=== PATIENT | female | born 1945 | race Caucasian/White ===

== ENCOUNTER → 2016-11-16 | Outpatient (CLI) | payer OTHER, MEDICARE ==
[~2016-11-16] MED LIST: ADVAIR 100-501 EACH INH; CALTRATE 600 +1 EAC1 PO; CO Q-10200 MG PO; COZAAR100 MG PO; FOSAMAX70 MG PO; HYGROTON25 MG PO; K-TAB 10MEQ10 MEQ PO; KRILL OIL 3001 EACH PO; LIPITOR10 MG PO; LUTEIN20 MG PO; MAGNESIUM400 M1 PO; MIRALAX17 GM PO; MOBIC15 MG PO; MURO 128 5% OP3.5 GM OPHTH; NEURONTIN300 MG PO; OXYCONTIN EXTEN10 MG PO; PROAIR HFA8.5 GM INH; RESTASIS1 EACH OPHTH; SENNA8.6 MG PO; SURFAK240 MG PO; THERA-VITE W/ B1 TAB PO; TOPROL XL25 MG PO; TYLENOL325 MG PO; VALIUM5 MG PO; VITAMIN D5000 UNI1 PO; ZINC50 MG PO
[2016-11-16 10:57] LABS: INR - (THERAPEUTIC) 0.96 (0.92-1.07); PROTIME 10.1 SECONDS (9.8-11.4)
== END ==
LOC: LGSMG 10:43
PROVIDERS: Internal Medicine
DX: Z01.818 Encounter for other preprocedural examination (principal)

== ENCOUNTER 2016-11-19 14:00 | Inpatient (IN) | payer OTHER, MEDICARE ==
[~2016-11-19] VITALS: Ht 168.9 cm; Wt 99.4 kg
--- NOTE | ~2016-11-19 | DS ---
PATIENT'S NAME: [facility] AGE: 71 Y [address] ROOM: [place] [address] LOCATION: [facility] ADMIT DATE: 11/24/2016 Discharge Summary DISCHARGE DATE: 11/30/2016 FAMILY PHYSICIAN: Tsering Marsh MD ATTENDING PHYSICIAN: Ross Blanc ADMIT DIAGNOSES: 1. Lumbar degenerative disk disease. 2. Lumbar spinal stenosis. 3. Lumbar radiculopathy. 4. Low back pain. 5. Status post lumbar fusion. 6. Sarcoidosis. DISCHARGE DIAGNOSES: 1. Lumbar degenerative disk disease. 2. Lumbar spinal stenosis. 3. Lumbar radiculopathy. 4. Low back pain. 5. Status post lumbar fusion. 6. Sarcoidosis. 7. Postoperative urinary tract infection. PROCEDURE PERFORMED: Lumbar decompression and fusion with removal of hardware and re-instrumentation with posterior pedicle screw instrumentation and interbody PEEK cage. HISTORY OF PRESENT ILLNESS: Lila is a 70-year-old female who has been followed in our clinic for conservative treatment of ongoing chronic low back pain with radiculopathy, secondary to adjacent level lumbar spinal stenosis. The patient has previous history of lumbar fusion. She failed all conservative treatment measures. At that point, lumbar fusion was discussed with the patient. She was informed of potential risks and side effects associated with this procedure. She voiced understanding and consented to proceed with surgery. HOSPITAL COURSE: The patient admitted through same-day surgery, underwent the above-stated procedure, was recovered in the PACU, and transferred to [address] [place] [address] in stable condition. The patient had significant difficulty with pain control. She did have intraoperative chronic dural leak that was repaired intraoperatively. She was placed supine for almost 2 days. This limited her mobility early on and again attributed to some of her initial pain control issues. Eventually, on postop day 2, she was sitting upright and mobilizing again with difficulty. She was eventually transitioned to oral pain medications and muscle relaxers. She was tolerating these. On postop day 3, PATIENT'S NAME: [facility] AGE: 71 Y [address] ROOM: [place] [address] LOCATION: [facility] ADMIT DATE: 11/24/2016 Discharge Summary DISCHARGE DATE: 11/30/2016 FAMILY PHYSICIAN: Tsering Marsh MD ATTENDING PHYSICIAN: Ross Blanc she started complaining of some bladder spasm and discomfort. Postop day 4, she was diagnosed with a urinary tract infection. She was treated with IV antibiotics. Vital signs are stable throughout. She is afebrile throughout her hospital course. Hemoglobin and hematocrit were stable. She did not require a blood transfusion. The patient eventually was mobilizing with use of a walker and minimal assistance upon discharge. Her incision was clean, dry, and intact with no signs of infection. DISCHARGE COURSE: The patient was discharged home on 11/30/2016. She was reminded of her postoperative restrictions, use of her brace, care for incision and dressing, and activity precautions. She was discharged home with oral pain medication and muscle relaxers. All of her questions were answered at this time. She is to follow up with Dr. Blanc in clinic in approximately 10 days. CARROLL HASTINGS FOR ROSS BLANC MD JTF/modl /[id number] d: 12/08/16516 t: 01/10/17 0802, DISCHARGE SUMMARY
--- NOTE | ~2016-11-19 | OR ---
PATIENT'S NAME: [facility] AGE: 70 Y [address] ROOM: [place] [address] LOCATION: [facility] ADMIT DATE: 11/24/2016 OR/Procedure Report DISCHARGE DATE: FAMILY PHYSICIAN: Tsering Marsh MD ATTENDING PHYSICIAN: Ross Blanc SURGEON: Ross Blanc MD AUTO DRIVER: DATE OF PROCEDURE: 11/24/2016 PREOPERATIVE DIAGNOSES: 1. Lumbar degenerative disk disease. 2. Lumbar spondylosis. 3. Lumbar spinal stenosis. 4. Lumbar radiculopathy. 5. Lumbar neurogenic claudication. 6. Status post lumbar fusion, L4-5. 7. Lumbar foraminal stenosis, right T12-L1, with radiculopathy. POSTOPERATIVE DIAGNOSES: 1. Lumbar degenerative disk disease. 2. Lumbar spondylosis. 3. Lumbar spinal stenosis. 4. Lumbar radiculopathy. 5. Lumbar neurogenic claudication. 6. Status post lumbar fusion, L4-5. 7. Lumbar foraminal stenosis, right T12-L1, with radiculopathy. 8. Large dural deficiency, left subarticular recess, L3-4. PROCEDURES PERFORMED: 1. Lumbar hardware removal, L4-5, screws and rods, nonsegmental. 2. Lumbar laminectomy of L3 with decompression of L3-4 interspace. 3. Lumbar fusion, combined technique, including transforaminal lumbar interbody fusion plus posterolateral fusion, L3-4. 4. Application of spinal prosthetic cage, L3-4 interspace. 5. Application of pedicle screw instrumentation, L3-4, nonsegmental, single edgardo, bilateral. 6. [place] of bone marrow aspirate, transpedicular technique, right L3 vertebral body. 7. Patch grafting repair of large dural deficiency measuring 2 x 1 cm, left L3-4. 8. Right T12-L1 transforaminal epidural steroid injection. FRUIT PEELER: CARROLL Warren ANESTHESIA: General. PATIENT'S NAME: [facility] AGE: 70 Y [address] ROOM: [place] [address] LOCATION: [facility] ADMIT DATE: 11/24/2016 OR/Procedure Report DISCHARGE DATE: FAMILY PHYSICIAN: Tsering Marsh MD ATTENDING PHYSICIAN: Ross Blanc ESTIMATED BLOOD LOSS: 600 mL. COMPLICATIONS: None. SPECIMENS: None. FINDINGS: Severe stenosis with a large dural deficiency, chronic, left subarticular recess, L3-4. Severe stenosis. Well-healed fusion, L4-5. INSTRUMENTATION USED: Globus Creo pedicle screw fixation and caliber cage. OPERATIVE INDICATIONS: The patient is a 70-year-old female with symptomatic spinal stenosis adjacent to a level where she had previous surgery. The patient failed conservative treatment and was offered surgery in the form of a lumbar decompression and fusion. After details, risks, benefits, and options were explained, she freely consented to surgery. She was offered surgery in the form of lumbar decompression and fusion with removal of the hardware from L4-5 where she had previously healed. After details, risks, benefits, and options were explained, she freely consented to surgery. DESCRIPTION OF PROCEDURE: After the patient was correctly identified and operative site initialed, she was taken back to the operating room and placed in the supine position. After general anesthesia was induced, she was placed in the prone position with all bony prominences well-padded and protected. The back was prepped and draped in the usual sterile fashion. A time-out was taken to verify the patient and the procedure. 10 mL of 0.25% Marcaine with epinephrine was injected in line with the incision. A 10-blade was used to make a midline incision over the operative levels through the previous scar. Dissection was taken down through subcutaneous tissue with electrocautery. The fascia was opened in the midline, and a subperiosteal dissection was performed to expose the posterior elements. The previously placed screws at L4-5 were encountered and then removed without difficulty. The screws still had very good fixation in the bone graft lateral gutter and healed well. After the hardware was removed, the transverse processes of L3 were exposed bilaterally. Next, the spinous process of L3 was resected, and the lamina was thinned with a Leksell rongeur. A high-speed bur was used to thin the lamina, and fine-tipped Kerrison were used to resect the remaining lamina. The lateral recesses were decompressed directly. On the left side, after resection of the markedly hypertrophied facet which was causing severe stenosis, there was a large area of chronic dural deficiency. Spinal fluid flowed freely from the large ulcerative-type lesion. The area was protected. The decompression was completed. Next, Durepair xenograft was shaped and then PATIENT'S NAME: [facility] AGE: 70 Y [address] ROOM: [id number] [place], [place] [address] LOCATION: [facility] ADMIT DATE: 11/24/2016 OR/Procedure Report DISCHARGE DATE: FAMILY PHYSICIAN: Tsering Marsh MD ATTENDING PHYSICIAN: Ross Blanc was sutured as a graft over the large dural deficiency using 5-0 interrupted silk suture. It occluded the area nicely, and there were no further areas of CSF loss or leakage. The decompression was completed, and right-sided facet at L3-4 was resected. The nerve root was decompressed through its course. Gentle medial retraction on the dura allowed identification of the disk space. It was incised and then debrided using pituitaries, curettes, and disk space kirk. After the disk space was prepared, it was packed with BMP and bone graft. A cage of the appropriate size was impacted in position and recessed below the posterior vertebral margin. It was expanded to its torque-limiting height. The reference ring clamp for the O-arm was attached to the L2 spinous process, and the arm was brought in for stealth navigation scan. Under stealth navigation, the pedicles were localized at L3 and verified at L4. Screws were placed at both levels and verified on confirmation scan. Prior to screw placement on the right at L3, a bone marrow aspirate needle was introduced into the vertebral body, and 5 mL of bone marrow aspirate was obtained and mixed with bone graft as well as bone graft senior engineering associate. Next, rods were reduced to the screws. Set caps placed and tightened to the appropriate torque. A high-speed bur was used to decorticate the left-sided transverse processes at L3 and the fusion mass at L4. The bone graft harvested locally from the spine along with bone graft senior engineering associate and bone marrow aspirate was packed into that left lateral gutter from the lateral fusion. The wound was irrigated and dried. There was no bleeding. A thin layer of DuraSeal was injected over the disk space isolated from the spinal canal as well as the dural patched area. 1 g of vancomycin powder was divided between the superficial and deep tissues. A #1 Vicryl suture was used to close the fascia, 0 Vicryl on the subcutaneous tissue, and then tre on the skin. A sterile dressing was applied. Under fluoroscopic control, the area for the right T12-L1 transforaminal epidural steroid injection was identified. It was marked on the skin, and the skin was prepped in sterile fashion with Betadine. It was draped sterilely, and under fluoroscopic control, a 5-inch, 22-gauge spinal needle was advanced through the skin to enter the right T12-L1 transforaminal region. This was verified on AP and lateral x-rays. There was no blood or CSF aspirated. 1 mL of 200 weight contrast was injected which showed good flow along the nerve root into the epidural space. Next, 10 mg of dexamethasone along with 1 mL of 1% plain lidocaine preservative-free was injected into the transforaminal region. The needle was withdrawn, and the skin was cleansed. The patient was awoken from anesthesia and taken to the recovery room in stable condition. ROSS BLANC MD PATIENT'S NAME: [facility] AGE: 70 Y [address] ROOM: [address] [address] LOCATION: [facility] ADMIT DATE: 11/24/2016 OR/Procedure Report DISCHARGE DATE: FAMILY PHYSICIAN: Tsering Marsh MD ATTENDING PHYSICIAN: Ross Blanc/mary /[id number] d: 11/24/16 1526 t: 11/28/16 1227, OPERATIVE SUMMARY
[2016-11-22] MEDS ORDERED: RESTASIS1 EACH OPHTH (14:00)
[2016-11-22] MEDS ORDERED: ADVAIR 100-501 EACH INH (14:00)
[2016-11-22] MEDS ORDERED: PROAIR HFA8.5 GM INH (14:01)
[2016-11-22] MEDS ORDERED: K-TAB 10MEQ10 MEQ PO (14:02)
[2016-11-22] MEDS ORDERED: TOPROL XL25 MG PO (14:03)
[2016-11-22] MEDS ORDERED: MOBIC15 MG PO (14:04)
[2016-11-22] MEDS ORDERED: COZAAR100 MG PO (14:05)
[2016-11-22] MEDS ORDERED: LIPITOR10 MG PO (14:06)
[2016-11-22] MEDS ORDERED: CO Q-10200 MG PO (14:07)
[2016-11-22] MEDS ORDERED: VITAMIN D5000 UNI1 PO (14:08)
[2016-11-22] MEDS ORDERED: CALTRATE 600 +1 EAC1 PO (14:08)
[2016-11-22] MEDS ORDERED: KRILL OIL 3001 EACH PO (14:08)
[2016-11-22] MEDS ORDERED: THERA-VITE W/ B1 TAB PO (14:09)
[2016-11-22] MEDS ORDERED: LUTEIN20 MG PO (14:09)
[2016-11-22] MEDS ORDERED: HYGROTON25 MG PO (14:09)
[2016-11-22] MEDS ORDERED: ZINC50 MG PO (14:11)
[2016-11-22] MEDS ORDERED: MAGNESIUM400 M1 PO (14:11)
[2016-11-22] MEDS ORDERED: MURO 128 5% OP3.5 GM OPHTH (14:13)
[2016-11-24] MEDS ORDERED: FOSAMAX70 MG PO (06:42)
[2016-11-24 07:22] LABS: INR - (THERAPEUTIC) 0.94 (0.92-1.07); PROTIME 9.9 SECONDS (9.8-11.4)
--- NOTE | 2016-11-24 14:55 | NUR ---
Introduced self/role to patient and her Didier, they live in [place]. She has had previous back surgeries. Listed off all the DME they already have and deny any need for additional DME. No barriers to discharge were mentioned. Added my name to her marker board, will continue to follow.
--- NOTE | 2016-11-24 17:50 | NUR ---
Significant Event: Patient came up from PACU at 1415. AOx3. VSS. CSM WNL. Nucynta and valium also given. Dilaudid VOLLEYBALL COACH. Dressing to back is C/D/I. On bedrest and to lay flat on back untill tomorrow. Hansen intact draining yellow urine. Follow up:
--- NOTE | 2016-11-25 04:25 | NUR ---
Significant Event: Alert and oriented X3. Drowsy at beginning of shift: fell asleep quickly, O2 need increased to 2L to keep sats >90% while drifting off to sleep. Pt was rating pain 8/10 though falling asleep. Neurochecks are WNL. Dressing to back is CDI. Pt is to lay flat in bed. Hansen, 550 ml out this shift. IV running to R) wrist. SL to L) FA. Dilaudid HAND POTTER for pain control. Pt has used 4.6 mg this shift. Pt continually rates pain 7-8/10. Nuycnta given X3 last at 0340 (orders to give orals with HAND POTTER). Toradol given X1 at 2215. Do acute distress noted with pain rating 8/10, pt able to rest. Dry eyes. Home restatis identified by pharmacy. Follow up: Dr. Blanc to address activity today. Pain management. Need order for systane eye drops, note placed on chart for MD.
[2016-11-25 05:48] LABS: BASOPHIL % 0.1 %; HEMATOCRIT 32.6 % (33.0-46.0); HEMOGLOBIN 10.6 g/dL (10.0-15.0); IMMATURE GRANULOCYTE # 0.1 K/uL (0.0-0.3); LYMPHOCYTE % 7.2 %; MCH 27.3 pg (27.0-34.0); MCHC 32.5 gm/dL (32.0-36.5); MONOCYTE % 6.7 %; MPV 11.7 fl (9.4-12.4); NEUTROPHIL # (ANC) 12.2 K/uL (1.8-7.8); NRBC % 0 /100WBC (0-0.00); PLATELET COUNT 150 K/uL (150-450); RBC 3.88 M/uL (3.50-5.50); RDW-CV 13.4 % (11.9-14.6); WBC 14.3 K/uL (4.0-11.0)
--- NOTE | 2016-11-25 13:51 | NUR ---
Significant Event: PT REMAINS RESTING IN BED WITH HEAD AT 10 DEGREES. IF THE HEADACHE RESOLVES SHE MUST LAY 1 HOUR AND THEN GRADUALLY INCREASE TO 30 DEGREES. MAGANA CATH REMAINS INTACT. LIP READING TEACHER DILAUDID FOR PAIN RATES AT A 5. BENEDRYLK GIUVEN AT 1315 FOR ITCHING. PT HAS VERY DRY EYES AND USES HER OWN EYE DROPS AT BED SIDE FOR THIS. IV FLUIDS CONT. DRESSING TO LOWER BACK CLEAN AND DRY. SOME NAUSEA THIS AM BUT HAS RESOLVED. 02 AT 2LPM/NC. TORODOL GIVEN THIS AFTERNOON. VALIUM ALSO GIVEN. CALL DR CACERES IF HEADACHE RETURNS WHEN EKLEVATED. Follow up:
--- NOTE | 2016-11-25 16:16 | NUR ---
Pt still on Bedrest orders with elevation of head if pt does not have headaches. PT will assess pt mobility once off bedrest. Kaitlyn Pappas, PT
--- NOTE | 2016-11-26 07:33 | NUR ---
Significant Event: On Dilaudid WEIGHT REDUCING TECHNICIAN. CSM WNL. Bedrest with HOB no higher than 30 degrees. 1 L of oxygen nasal cannula. Hansen catheter. Dressing has moderate sanginous drainage from the previous shift. Percocet last at 0512. Valium at 0343. Toradol at 0022. Benadryl at 0257 for itching. Zofran at 0257 for heartburn. Follow up:
--- NOTE | 2016-11-26 17:16 | NUR ---
Pt alert and oriented. VA have been stable. She remains on O2 at 1 liter. SEWER BUILDER dilaudid stopped this afternoon. had 1.8 mg in with 18 injections. She remains on ETCO2 and sat monitor. Pt has rated pain in low back and pelvis/hips from 9 down to 2. Also some pain and stiffness in neck. Pt back dressing changed today by Dr Cheng. Pt has echeverria that can be removed anytime tonight. She has felt urge to void at times but 850 ml out. Pt has been turned q 2 hr when in bed and position of head, legs, etc changed numerous times to get comfortable. She stood at 1415, took a few steps and up in recliner. Legs and body weak. Returned to bed at 1615. She had ofirmev, refused oxycodone. Had vistaril for itching and it also helped the pain. Pt has had heartburn and reflux. zofran this morning, mylanta and pepcid given. Says it is better. She had projectile emesis this am after some pills. Takes water only. States no appetite and doesn't want food at this time. Pt has had dry eyes and meds used. She is high risk TOAN. Pt hasn't had headache this shift until she transferred into bed and then it was mild. Pt also refused po KCL pills at 1500.
--- NOTE | 2016-11-27 05:06 | NUR ---
Significant Event: A/0 X 3. 02 1L. ETCO2 AND SAT MONITORING. PAIN IN LOWER BACK, PELVIS AND OVER BLADDER AREA. PAIN OVER BLADDER AREA FROM 2-10. BACK DRSGS HAS MODERATE AMOUNT SANGUINOUS DRAINAGE. PNEUMATICS ON AND THIGH HI YEVGENIY HOSE. PATIENT DENIES NETO NUMBNESS OR TINGLING TO UPPER OR LOWER EXTREMITIES. MOVES ALL 4 EXTREMITIES. MAGANA CATHETER WAS REMOVED AT 2110 2350ML URINE. PATIENT HAD VOIDED 100ML URINE. STILL C/O NOT EMPTYING. AT 0000 MAGANA CATHETER WAS REINSERTED BY CHARGE NURSE IRINEO RICE WITH 650ML YELLOW URINE DRAINED AND AT END WAS LIGHT PINKISH TINGED. HAD OXYCONTIN 10MG PO AT 2125 FOR PAIN AT 7 LATER A 6. HAD VALIUM 5MG AT 0303 FOR BLADDER PRESSURE RATING AT A 10, LATER A 6. LOWER BACK PELVIS PAIN TAYLA 7. DOSES EASILY AFTER VALIUM GIVEN. NO NAUSEA OR HEARBURN, TAKEN CRACKERS, REFUSED EVENING MEAL. SLIGHT H/A AT TIMES RATED A 2. TOTAL URINE OUTPUT OF 4450. PO INTAKE: 600; IV INTAKE 1150. IV SALINE LOCKED AT 0200. INCENTIVE SPIROMETER USAGE 1500. Follow up:
--- NOTE | 2016-11-27 13:03 | NUR ---
Significant Event:AOx3. VSS. CSM WNL. Dressing to back is C/D/I. Has back brace when out of bed. Has scheduled Oxycontin and PRN valium. Pulled Hansen out at 1000. Patient has had no problems voiding. Patient has shower this morning and has walked in room. She needs to walk at least 3 times a day if not more. Has scheduled IV Tylenol. Up with 1 assist. Follow up:
--- NOTE | 2016-11-28 03:56 | NUR ---
Significant Event: PATIENT UP NUMEROUS TIMES TO VOID. REQUESTED REPOSITIONED EVERY 20-30 MINUTES. PATIENT RELUCTANT TO MOVE ON OWN. REQUIRED ASSIST OF 2 TO STAND UP FROM SITITNG POSITION AT EDGE OF BED OR FROM TOILET. USES GAIT BELT AND BACK BRACE WHEN UP. DRESSINGS D/I. SALINE LOCKS INTACT X2. C/O HER BLADDER HURTING. DENIES BURNING WITH URINATION. ROUTINE OXYCONTIN GIVEN ORDERED. VALIUM 5 MG GIVEN PO @ 0300 FOR DISCOMFORT. Follow up: NEEDS MUCH ENCOURAGEMENT TO MOVE AND DO TASKS FOR SELF
[2016-11-28 14:05] LABS: BILIRUBIN URINE NEGATIVE (NEGATIVE); BLOOD URINE 250 /UL (NEGATIVE); COLOR URINE YELLOW (YELLOW); GLUCOSE URINE NEGATIVE (NEGATIVE); KETONE URINE NEGATIVE (NEGATIVE); LEUKOCYTES URINE 25 /UL (NEGATIVE); NITRITE URINE NEGATIVE (NEGATIVE); PROTEIN URINE NEGATIVE (NEGATIVE); TURBIDITY URINE 1+ (CLEAR); UROBILINOGEN URINE NORMAL (NORMAL)
[2016-11-28 14:15] LABS: BACTERIA URINE FEW (NEGATIVE); EPITHELIAL URINE 0-2 #/HPF (NEGATIVE); RBC URINE FULL FIELD #/HPF (NEGATIVE)
--- NOTE | 2016-11-28 17:09 | NUR ---
Significant Event: Pt has been able to ambulate to bathroom and in sage with 1 assist with gait belt and back brace on. She showered with 1 assist. Drsg was changed to her back. [place] intact without redness. Pt c/o bladder pain. UA sent to lab. She was started on Rocephin daily.
--- NOTE | 2016-11-29 05:30 | NUR ---
Significant Event: Sleeping for long periods tonight. Afebrile. all other VSS. Routine oxycontin given x1 at 2148, Tylenol (650mg) given x2 last at 0152 and Valium 5mg given last at 0151. Drinking and voiding adequate amounts. CSM to bilateral upper and lower extremities remains WML. Ambulates in room and to bathroom with 1 assist, walker and gait belt. Back brace on when up. Dressing to lumbar spine remains dry and intact. Pleasant and cooperative with all cares. Follow up:
[2016-11-29 06:16] LABS: CREATININE 0.5 mg/dL (0.5-1.1); ESTIMATED GFR (MDRD EQUATION) > 60
--- NOTE | 2016-11-29 10:15 | NUR ---
Followed up with patient. Still does not anticipate any needs when she gets home.
--- NOTE | 2016-11-29 11:53 | NUR ---
A-SCREENED D/T LOS S/P BACK SURGERY HT: 66.5 IN. WT: 99.4 KG. IBW 60KG; 166% OF IBW. BMI: 34.8 NO BM SINCE ADMIT LABS: OUTPATIENT PHYSICAL THERAPIST WNL MEDS: SENOKOT, MIRALAX, PRN BOWEL MEDS, TRANDATE INJ., ROCEPHIN, PEPCID, OXYCONTIN, DIALUDID, ZOFRAN. DIET RX: REGULAR. PO INTAKE REF-100%. REFUSALS WERE POST-OP WHEN PT WAS HAVING C/O NAUSEA. PO INTAKE HAS IMPROVED OVER THE LAST SEVERAL DAYS TO 75-100%. EST NUTR NEEDS: 3901-5375 KCALS (15-20 KCALS/KG) 90-120 GM PROTEIN (1.0-1.2 GM/KG) 1 ML FLUID PER KCAL D-NOT AT NUTRITION RISK; NO NUTRITION DX IDENTIFIED I-CONTINUE W/CURRENT DIET RX M/E-WILL ASSIST NEEDED
--- NOTE | 2016-11-29 18:27 | NUR ---
Significant Event: VSS, Afebrile. CSM WNL to lower and upper extremities, she is able to plantar and dorsal flex ankles, denies numbness or tingling to extremities. Transfers with 1 assist, wheeled walker and gait belt. Dressing to lower back intact without drainage noted. Routine pain medication given, valium 5 mg at 1336 and tylenol 650mg at 1743 with some relief. Started on additional medication for constipation as she has not had a stool since 11/23. Patient reports she still has some urgency with voiding. Follow up:Pain control, assist with transfers and ambulation.
--- NOTE | 2016-11-30 03:55 | NUR ---
Significant Event: UP WITH ASSISTANCE OF 1 PERSON THIS SHIFT. ASKS FOR ASSISTANCE TO REPOSITION IN BED. C/O CONSTIPATION AND ASKED FOR MANUAL REMOVAL TO BE DONE. DULCOLAX SUPP GIVEN AND HELD FOR 40 MINUTES. MANUAL EXTRACTION OF LARGE AMT SOFT STOOL COMPLETED BY NURSE. PATIENT TOLERATED PROCEDURE WELL. ROUTINE OXYCONTIN GIVEN @ 2100. VALIUM 5MG AND TYLENOL 650 MG GIVEN @ 2342 FOR PAIN. SLEPT WELL X3 HOURS. UP TO VOID AND RETURNED TO SLEEP. DRESSING TO LOWER BACK D/I. Follow up: PROBABLE DISMISSAL TO HOME TODAY
[2016-11-30] MEDS ORDERED: SURFAK240 MG PO (12:21)
[2016-11-30] MEDS ORDERED: OXYCONTIN EXTEN10 MG PO (12:22)
[2016-11-30] MEDS ORDERED: TYLENOL325 MG PO (12:23)
[2016-11-30] MEDS ORDERED: VALIUM5 MG PO (12:25)
[2016-11-30] MEDS ORDERED: MIRALAX17 GM PO (12:27)
[2016-11-30] MEDS ORDERED: SENNA8.6 MG PO (12:29)
[2016-11-30] MEDS ORDERED: NEURONTIN300 MG PO (12:32)
--- NOTE | 2016-11-30 16:10 | NUR ---
ORDERS RECEIVED FOR THE PATIENT TO BE DISCHARGED TO HOME, WILL COME AROUND 1700 TO GET THE PATIENT. DISCHARGE INSTRUCTIONS WERE PREPARED BY THE VIRTUAL NURSE AND WILL BE REVIEWED WITH THE PATIENT AT BEDSIDE BY THE PRIMARY NURSE. THE FOLLOWING INFORMATION WAS PREPARED INCLUDING KRAHILARIA TEACHING SHEETS PROVIDED: UNDERSTANDING TRANSFORAMINAL LUMBAR INTERBODY FUSION, DISCHARGE INSTRUCTIONS FOR LUMBAR FUSION, COLACE, OXYCONTIN, VALIUM, MIRALAX, SENNA, SENOKOT, NEURONTIN, AND PREVENTING DVT. FOLLOW UP APPOINTMENT WAS ALREADY MADE WITH DR. ABRAMS IN [address] [facility].
== END 2016-11-30 17:18 | disposition disaster alternative care site (69) | DRG 460 ==
LOC: G3N 11-24 05:57 → GMSU 11-27 16:45
PROVIDERS: Internal Medicine; ADMIT Orthopaedic Surgery Orthopaedic Surgery of the Spine
PROC: 07DS3ZZ Extraction of Vertebral Bone Marrow, Percutaneous Approach (ICD-10-PCS; principal; 2016-11-24)
PROC: 0SG00Z1 (ICD-10-PCS; principal; 2016-11-24)
PROC: 3E0R33Z Introduction of Anti-inflammatory into Spinal Canal, Percutaneous Approach (ICD-10-PCS; principal; 2016-11-24)
PROC: 00UT0KZ Supplement Spinal Meninges with Nonautologous Tissue Substitute, Open Approach (ICD-10-PCS; principal; 2016-11-24)
PROC: 0QP004Z Removal of Internal Fixation Device from Lumbar Vertebra, Open Approach (ICD-10-PCS; principal; 2016-11-24)
PROC: 0SG00AJ Fusion of Lumbar Vertebral Joint with Interbody Fusion Device, Posterior Approach, Anterior Column, Open Approach (ICD-10-PCS; principal; 2016-11-24)
DX: M51.36 Other intervertebral disc degeneration, lumbar region (principal); D68.51 Activated protein C resistance; N39.0 Urinary tract infection, site not specified; B96.89 Other specified bacterial agents as the cause of diseases classified elsewhere; M47.26 Other spondylosis with radiculopathy, lumbar region; M48.06 Spinal stenosis, lumbar region; M99.83 Other biomechanical lesions of lumbar region; J45.909 Unspecified asthma, uncomplicated; E66.9 Obesity, unspecified; I10 Essential (primary) hypertension; I45.10 Unspecified right bundle-branch block; Z68.35 Body mass index [BMI] 35.0-35.9, adult; K21.9 Gastro-esophageal reflux disease without esophagitis
CPT/HCPCS: C1713; C1776; J0131; J0171; J0690; J0696; J1100; J1170; J1650; J1885; J2405; J3010; J3370; J3480; J7030; J7050

== ENCOUNTER 2016-12-03 18:36 | Emergency (ER) | payer OTHER, MEDICARE ==
--- NOTE | ~2016-12-03 | ER ---
PATIENT'S NAME: F[facility] AGE: 71 Y [address] ROOM: [place] [address] LOCATION: [facility] ADMIT DATE: 12/03/2016 ER/Outpatient Report DISCHARGE DATE: 12/03/2016 FAMILY PHYSICIAN: Tsering Marsh MD ATTENDING PHYSICIAN: Cinthya Ashford TIME OF ARRIVAL: 18:45. TIME OF EXAMINATION: 18:45. CHIEF COMPLAINT: Increased urinary frequency. HISTORY OF PRESENT ILLNESS: The patient had back surgery done on 11/24/2016 here at [facility] by Dr. Blanc. She states she developed a urinary tract infection. She was given Rocephin while in the hospital, and was not sent home on any oral-type antibiotics. She states that today she has had increased urinary frequency, not having any pain with it, but just having to go more often in small amounts. She denies any change in her back. She has not had increased pain, and has had normal bowel movements, almost diarrhea-type stools from the laxatives that she received in the hospital, she states. ALLERGIES: MORPHINE. MEDICATIONS: On the chart and reviewed by me. PAST MEDICAL HISTORY: 1. Hypertension. 2. Hypercholesterol. 3. Back problems. PAST SURGERIES: 1. Recent surgery to the lumbar back. 2. Bilateral knee replacement. 3. Right shoulder surgery. 4. Appendectomy. 5. Trigger thumb surgery. 6. Tubal ligation. SOCIAL HISTORY: PATIENT'S NAME: FARMINGTON [facility] AGE: 71 Y [address] ROOM: [place] [address] LOCATION: [facility] ADMIT DATE: 12/03/2016 ER/Outpatient Report DISCHARGE DATE: 12/03/2016 FAMILY PHYSICIAN: Tsering Marsh MD ATTENDING PHYSICIAN: Cinthya Ashford She presented to the ER accompanied by her . She denies use of tobacco, drugs, or alcohol. REVIEW OF SYSTEMS: All negative other than those mentioned in the HPI. PHYSICAL EXAMINATION: VITAL SIGNS: Weight is 99.7 kg. Blood pressure of 140/90, pulse of 104, respirations of 18, temperature of 99.3, and O2 saturation of 97% on room air. GENERAL: She is awake, alert, and oriented x4. SKIN: [place], warm, and dry. PULMONARY: Respirations are even and nonlabored. Lung sounds are clear throughout. HEART: Regular rate and rhythm. ABDOMEN: Soft and nondistended. Bowel sounds are present. BACK: She does have a dressing on her back that is well sealed. No drainage of her back is noted. GENITOURINARY: A clean cath UA was obtained. LABORATORY DATA: Lab work was drawn. CBC is within normal limits. Chem panel is within normal limits. Urine shows leukocytes and 5 to 10 white blood cells. Lactate was 1.6. Her urine culture and sensitivity that was done while in the hospital showed positive for E. coli and Pseudomonas. The Rocephin that she was given was not sensitive for the Pseudomonas. The patient was reviewed with Dr. Ashford. IMPRESSION: Urinary tract infection. PLAN: Home, rest, and fluids. Continue current medications. Prescription was for ciprofloxacin. The patient is to follow up with Dr. Marsh if symptoms persist or worsen. She is scheduled to see Dr. Blanc for postop exam on Tuesday. I encouraged her to keep that appointment. She verbalized understanding. ALBERTO DAWKINS APRN FOR [facility]AMP[facility]/mary PATIENT'S NAME: [facility] AGE: 71 Y [address] ROOM: [place] [address] LOCATION: ED ADMIT DATE: 12/03/2016 ER/Outpatient Report DISCHARGE DATE: 12/03/2016 FAMILY PHYSICIAN: Tsering Marsh MD ATTENDING PHYSICIAN: Cinthya Ashford /[id number] d: 12/04/16 0237 t: 12/06/16 1210, OUTPATIENT REPORT
[2016-12-03 19:10] LABS: BILIRUBIN URINE NEGATIVE (NEGATIVE); BLOOD URINE 10 /UL (NEGATIVE); COLOR URINE YELLOW (YELLOW); GLUCOSE URINE NEGATIVE (NEGATIVE); KETONE URINE NEGATIVE (NEGATIVE); LEUKOCYTES URINE 25 /UL (NEGATIVE); NITRITE URINE NEGATIVE (NEGATIVE); PROTEIN URINE NEGATIVE (NEGATIVE); SPEC GRAVITY URINE 1.015 (1.003-1.035); TURBIDITY URINE CLEAR (CLEAR); UROBILINOGEN URINE NORMAL (NORMAL)
[2016-12-03 19:15] LABS: RBC URINE NEGATIVE #/HPF (NEGATIVE)
[2016-12-03 19:15] LABS: BASOPHIL % 0.4 %; EOSINOPHIL # 0.2 K/uL (0.0-0.5); EOSINOPHIL % 1.6 %; HEMATOCRIT 32.5 % (33.0-46.0); HEMOGLOBIN 10.5 g/dL (10.0-15.0); IMMATURE GRANULOCYTE # 0.1 K/uL (0.0-0.3); IMMATURE GRANULOCYTE % 0.6 %; LYMPHOCYTE # 2.5 K/uL (0.8-4.0); LYMPHOCYTE % 26.3 %; MCH 27.1 pg (27.0-34.0); MCHC 32.3 gm/dL (32.0-36.5); MCV 83.8 fl (83.0-98.0); MONOCYTE # 0.6 K/uL (0.0-1.0); MONOCYTE % 6.6 %; MPV 9.8 fl (9.4-12.4); NEUTROPHIL # (ANC) 6.1 K/uL (1.8-7.8); NEUTROPHIL % 64.5 %; NRBC % 0 /100WBC (0-0.00); RBC 3.88 M/uL (3.50-5.50); RDW-CV 13.6 % (11.9-14.6); WBC 9.5 K/uL (4.0-11.0)
[2016-12-03 19:16] LABS: BACTERIA URINE NEGATIVE (NEGATIVE); WBC CLUMPS URINE FEW (NEGATIVE)
[2016-12-03 19:19] LABS: PLATELET COUNT 394 K/uL (150-450)
[2016-12-03 19:32] LABS: ALBUMIN 2.8 gm/dL (3.5-5.0); ALK PHOS 128 IU/L (33-138); ALT 53 IU/L (12-78); ANION GAP 12.4 (10.0-19.0); AST 28 IU/L (10-40); BLOOD UREA NITROGEN 16 mg/dL (6-24); CALCIUM 8.4 mg/dL (8.5-10.5); CHLORIDE 98 mMol/L (96-110); CO2 28 mMol/L (22-32); CREATININE 0.7 mg/dL (0.5-1.1); ESTIMATED GFR (MDRD EQUATION) > 60; POTASSIUM 3.4 mMol/L (3.7-5.1); SODIUM 135 mMol/L (135-145); TOTAL BILIRUBIN 0.3 mg/dL (0.0-1.5); TOTAL PROTEIN 6.4 g/dL (6.0-8.4)
== END 2016-12-03 19:54 | disposition disaster alternative care site (69) ==
LOC: GMED 18:36
PROVIDERS: Nurse Practitioner Family
DX: N39.0 Urinary tract infection, site not specified (principal); I10 Essential (primary) hypertension; E78.00 Pure hypercholesterolemia, unspecified; Z79.899 Other long term (current) drug therapy; Z88.5 Allergy status to narcotic agent; Z96.653 Presence of artificial knee joint, bilateral; Z90.89 Acquired absence of other organs; Z79.2 Long term (current) use of antibiotics; Z98.51 Tubal ligation status

== ENCOUNTER → 2016-12-21 | Outpatient (CLI) | payer OTHER, MEDICARE | END | disposition disaster alternative care site (69) | LOC: LGSMG 13:24 | DX: R50.9 Fever, unspecified (principal); R19.7 Diarrhea, unspecified ==

== ENCOUNTER → 2017-02-17 | Outpatient (CLI) | payer OTHER, MEDICARE | END | disposition disaster alternative care site (69) | LOC: GRAD 08:42 | DX: R10.31 Right lower quadrant pain (principal); K76.0 Fatty (change of) liver, not elsewhere classified; N83.201 Unspecified ovarian cyst, right side; Z98.890 Other specified postprocedural states | CPT/HCPCS: Q9967 ==